=== PATIENT | female | born 2000 | race Caucasian/White ===

== ENCOUNTER 2018-07-21 15:06 | Emergency (ER) | payer SELFPAY, OTHER ==
[2018-07-21] MEDS: predniSONE 20 MG TAB PO (17:39)
[2018-07-21] MEDS: DIPHENHYDRAMINE 50 MG CAP PO (17:39)
[2018-07-21 17:48] LABS: URINE PH (Dip) POC 6.5 (5.0-8.5)
[2018-07-21 17:48] LABS: URINE BLOOD (Dip) POC Negative (NEGATIVE); URINE GLUCOSE (Dip) POC Negative (NEGATIVE); URINE KETONES (Dip) POC 4+ (NEGATIVE); URINE LEUKOCYTE EST (Dip) POC Negative (NEGATIVE); URINE NITRITE (Dip) POC Positive (NEGATIVE); URINE TOTAL PROTEIN POC Negative (NEGATIVE)
== END 2018-07-21 18:42 | disposition home or self-care (01) ==
LOC: FTE 15:06
DX: O23.42 Unspecified infection of urinary tract in pregnancy, second trimester (principal); T78.1XXA Other adverse food reactions, not elsewhere classified, initial encounter; Z3A.18 18 weeks gestation of pregnancy
CPT/HCPCS: 81003; 99283